=== PATIENT | female | born 1955 | race Hispanic/Latino ===

== ENCOUNTER 2016-10-06 11:52 | Emergency (ER) | payer OTHER ==
[~2016-10-06] VITALS: Ht 157.5 cm; Wt 52.3 kg
[2016-10-06 11:52] VITALS: BP 190/72; PULSE 78; RESP 19; O2SAT 99
--- NOTE | 2016-10-06 12:15 | ED.REPORT ---
HPI-Chest Pain 40 and Over Date of Service October 06, 2016 ED Provider: Arlene Elliott MD The patient is a 60 year old female w/ a hx of pericarditis, HTN, anxiety, and depression who presents to the ED via EMS due to central chest pain onset 2200 last night. Associated symptoms include nausea, SOB, and chest pain w/ deep inspiration. She cannot bend forward without pain. She went to the [facility] on [facility] this morning for mid-sternal chest pressure and SOB. Her had the pt take Aspirin 325 mg around 0800 this AM. She has had increased stress levels with a work deadline today. Pt is tapering herself off of medications, but her MD does not know this. She has taken herself off Propranolol, Prozac and Clonidine. Pt stopped lisinopril about 1 year ago. She is still taking Trazodone. She denies diaphoresis, wheezing, and vision changes. Nursing Notes Stated Complaint: CHEST PAIN Chief Complaint: Chest Pain Nursing Notes Reviewed: Yes Allergies: Coded Allergies: Sulfa (Sulfonamide Antibiotics) (Verified Allergy, Severe, rash, 10/06/16) prochlorperazine (Verified Allergy, Severe, "gave me a panic attack", 10/06) General Time Seen by MD: 12:14 Chief Complaint Chest pain Hx Obtained From: Patient Arrived By: Ambulance Sudden in Onset?: Yes Onset Occurred: 13 - 16 hours ago Symptom Duration: Since onset Quality: Painful Severity: Current: Mild Associated with: Reports: Nausea, Shortness of Breath Recent Healthcare: Recent doctor visit Similar Sx Previous: Yes Past Medical History Past Medical History hx of heart palpitations heart murmur w/ "valve issue," anxiety insomnia Reports: Depression Smoking History Unknown if Ever Smoker Social History Other Social History: Local resident Ambulatory Status Independent Review of Systems Respiratory: Reports: Shortness of breath, Denies: Wheezing Cardiovascular: Reports: Chest pain GI: Reports: Nausea Skin: Denies Diaphoresis Psychiatric: Reports: Stress Complete sys rev & neg: except as marked. Eyes: Denies: Blurred bilateral Physical Exam Initial Vital Signs Vital Signs (First) Date Time Temp Pulse Resp B/P Pulse Ox O2 Delivery O2 Flow Rate FiO2 10/06/16 11:52 36.7 78 19 190/72 99 Room Air 10/06/16 13:05 2 Initial VS: Reviewed Head / Eyes: Atraumatic, Normocephalic, PERRL ENT: Mucous membranes moist, Conjunctiva normal, No scleral icterus Neck: Supple, Non-tender Extremities: Vascular intact, Neuro intact, No swelling, No tenderness Skin: Warm, Dry Neurologic: Alert, Oriented General/Constitutional: Awake, Alert, Cooperative, Not toxic appearing Respiratory / Chest: Atraumatic, Breath sounds NL, Breath sounds = bilat, No respiratory distress Cardiovascular: No gallop, No murmurs, No rubs Heart Sounds / Murmur: Positive: Systolic murmur present.. (IV/) no costochondral tenderness Abdomen: Atraumatic, Soft, Non-tender Interpretation & Diagnostics Lab Results Interpretation Result Diagram: 10/06/16 1235 10/06/16 1235 Test 10/06/16 12:35 10/06/16 13:34 White Blood Count 8.1th/mm3 (3.8-10.1) Red Blood Count 4.35mil/mm3 (3.90-5.20) Hemoglobin 13.3g/dL (12.0-15.6) Hematocrit 38.8% (35.0-46.0) Mean Corpuscular Volume 89.2fL (81-100) Mean Corpuscular Hemoglobin 30.6pg (27.0-35.0) Mean Corpuscular Hemoglobin Concent 34.3% (32.0-37.0) Red Cell Distribution Width 12.7% (12.3-15.4) Platelet Count 205bil/L (150-400) Neutrophils (%) (Auto) 72.2% (40-74) Lymphocytes (%) (Auto) 16.4% (14-46) Monocytes (%) (Auto) 10.2% (4-12) Eosinophils (%) (Auto) 0.6% (0-5) Basophils (%) (Auto) 0.4% (0-3) Sodium Level 139mEq/L (134-144) Potassium Level 4.0mEq/L (3.5-5.2) Chloride Level 103mEq/L (97-108) Carbon Dioxide Level 24mmol/L (18-29) Blood Urea Nitrogen 13mg/dL (6-24) Creatinine 0.66mg/dL (0.57-1.00) Estimat Glomerular Filtration Rate 131mL/min (>59) Glucose Level 107mg/dL (60-99) Calcium Level 9.0mg/dL (8.5-10.1) Magnesium Level 2.1mg/dL (1.6-2.6) Total Bilirubin 0.6mg/dL (0.0-1.2) Aspartate Amino Transf (AST/SGOT) 19U/L (0-50) Alanine Aminotransferase (ALT/SGPT) 16U/L (0-32) Alkaline Phosphatase 49U/L (25-165) Total Creatine Kinase 79U/L (21-215) Creatine Kinase MB 1.6ng/mL (0.0-5.3) Creatine Kinase MB % % (0.0-5.0) Troponin T < 0.010ug/L (0.0-0.011) Pro-B-Type Natriuretic Peptide 182.0pg/mL (0-287) Total Protein 6.5g/dL (6.4-8.4) Albumin 4.1g/dL (3.4-5.0) Hold Urine Received (Received) ECG Interpretation ECG Interpretation: ST elevation suggests acute pericarditis Time: 12:02 Interpreted by: ED physician Normal ECG Interpretation: Normal sinus rhythm (rate 74) X-Ray Chest Interpretation Chest Xray Interpretation: IMPRESSION: Negative chest. No acute cardiopulmonary process is evident. Dictated by: Rolan Ingram M.D. on 10/06/2016 at 11:31 Approved by: Rolan Ingram M.D. on 10/06/2016 at 11:33 View: Portable Interpretation / Wet Read by: Interpret - Radiologist Re-Eval/Medical Decision Time of Eval: 14:44 Patient Status: Moderate relief, Pain improved Re-Evaluation/Progress Note: Pt rechecked. Pain is much improved. Informed pt of diagnosis of pericarditis and plan of treatment. F/U and RTER warnings given. Pt understands and agrees with plan. All questions addressed. Counseled Regarding: Diagnosis, Lab results, Need for follow-up, When/why to return to ED Discharge & Departure Primary Impression: Pericarditis Pericarditis type: unspecified type Chronicity: unspecified Qualified Code : I31.9 - Disease of pericardium, unspecified Ruled Out: STEMI (ST elevation myocardial infarction), Congestive heart failure, Myocarditis, Pulmonary embolism, Pneumonia Disposition: Home Discharge Condition All VS Reviewed: Yes Condition: Stable Patient Instructions: Acute Pericarditis (ED) Additional Instructions: Your x-ray and lab work both appear normal. There are no signs of heart attack. Your EKG shows changes in multiple leads that is most suggestive of pericarditis , an inflammation of the lining around the heart. This can sometimes occure after having a cold or flu. Your symptoms will most likely resolve naturally in 5-7 days. There is no evidence for an acute heart attack, congestive heart failure or myocarditis. Take Naprosyn 500 mg morning and night for 1 week to control the inflammatory related pain. There are no recommended restrictions to activity or 2 diet Follow up with your primary care physician in 2 weeks. I have give you copies of the ER note along with lab work and a copy of the EKG to share with him. You can talk with your doctor about getting an echocardiogram for further evaluation of your cardiac function after this inflammatory process. You do have a loud heart murmur and echocardiogram may be appropriate to further evaluate that as well. Do not hesitate to return the Emergency Department for any new or worsening symptoms including shortness of breath, inability to lay down due to shortness of breath, pain into your jaw, swelling in feet or ankles, and increased shortness of breath with exertion. I hope you feel better soon and can enjoy the rest of your day. Referrals: [facility] Scribe Attestation Portion of this note were transcribed by Azul Mares. I, Dr. Arlene Elliott, personally performed the history, physical exam, and medical decision-making: I reviewed and confirmed the accuracy for the information in the transcribed note. Signed by: foreign Wright, 10/06/16 1500 Arlene Elliott MD October 06, 2016 12:15 Azul Mares October 06, 2016 12:28
[2016-10-06] MEDS ORDERED: Ondansetron 2 mg/mL 2 mL Inj IVPUSH ONE (12:25)
--- NOTE | 2016-10-06 12:34 | DRSVH ---
PROCEDURE: X-RAY CHEST ONE VIEW, PORTABLE ([id number]) INDICATIONS: chest pain TECHNIQUE: One view of the chest was acquired. COMPARISON: None. FINDINGS: Surgical changes and devices: None. Lungs and pleura: No pleural effusions or pneumothorax. Lungs are clear. Mediastinum: Mediastinal contours appear normal. Heart size is normal. There is aortic atheroscler osis. Bones and chest wall: No suspicious bony lesions. Overlying soft tissues appear unremarkable. IMPRESSION: Negative chest. No acute cardiopulmonary process is evident. Dictated by: Rolan Ingram M.D. on 10/06/2016 at 11:31 Approved by: Rolan Ingram M.D. on 10/06/2016 at 11:33
[2016-10-06 12:42] VITALS: BP 157/72; PULSE 83; RESP 16; O2SAT 99
[2016-10-06 12:43] LABS: BASOPHILS % (AUTO) 0.4 % (0-3); EOSINOPHILS % (AUTO) 0.6 % (0-5); MONOCYTES % (AUTO) 10.2 % (4-12); Mean Corpuscular Hemoglobin 30.6 pg (27.0-35.0); Mean Corpuscular Volume 89.2 fL (81-100); NEUTROPHILS % (AUTO) 72.2 % (40-74); Platelet Count 205 bil/L (150-400)
[2016-10-06 13:05] VITALS: BP 160/67; PULSE 90; RESP 15; O2SAT 100
[2016-10-06 13:12] LABS: TROPONIN T < 0.010 ug/L (0.0-0.011)
[2016-10-06 13:16] LABS: Magnesium 2.1 mg/dL (1.6-2.6)
[2016-10-06 13:36] LABS: Creatine Kinase 79 U/L (21-215)
[2016-10-06 15:10] VITALS: BP 129/57; PULSE 90; RESP 16; O2SAT 97
[2016-10-06] MEDS ORDERED: NAPR500T PO (15:32)
== END 2016-10-06 16:01 | disposition home or self-care (01) ==
LOC: SED 11:52 → EDBD 11:52 → SED 16:01
DX: I31.9 Disease of pericardium, unspecified (principal); I10 Essential (primary) hypertension; F32.9 Major depressive disorder, single episode, unspecified; R11.0 Nausea; F43.9 Reaction to severe stress, unspecified; Z88.2 Allergy status to sulfonamides; Z88.8 Allergy status to other drugs, medicaments and biological substances
CPT/HCPCS: 36415; 71010; 80053; 82550; 82553; 83735; 83880; 84484; 85025; 93005; 96374; 99285; J1885